=== PATIENT | male | born 1990 | race Caucasian/White ===

== ENCOUNTER 2023-09-24 03:13 | Emergency (ER) | payer BC ==
[~2023-09-24] VITALS: Ht 175.3 cm; Wt 70.0 kg
[2023-09-24 03:20] VITALS: O2SAT 98
[2023-09-24 03:57] VITALS: BP 161/101; PULSE 84; RESP 14; TEMP 98
[2023-09-24 04:40] LABS: BASOPHILS % 0.2 % (0.0-2.0); EOSINOPHILS % 0.1 % (0.0-5.0); HEMATOCRIT. 43.3 % (42.0-52.0); HEMOGLOBIN. 14.1 g/dL (14.0-18.0); LYMPHOCYTES % 8.9 % (20.0-50.0); MEAN CORPUSCULAR HEMOGLOBIN 26.7 pg (28.0-32.0); MEAN CORPUSCULAR HGB CONC 32.6 g/dL (31.0-37.0); MEAN CORPUSCULAR VOLUME 81.9 fL (80.0-94.0); MONOCYTES % 7.4 % (2.0-8.0); NEUTROPHILS % 83.4 % (40.0-76.0); PLATELET 277 x1000/uL (130-400); RED BLOOD CELL COUNT 5.29 mill/uL (4.7-6.1); RED CELL DISTRIBUTION WIDTH 15.7 % (11.6-14.6)
[2023-09-24 04:48] LABS: CHLORIDE 106 mEq/L (98-107); SODIUM 141 mEq/L (136-145)
[2023-09-24 04:51] LABS: CARBON DIOXIDE 27 mEq/L (21-32)
[2023-09-24 04:52] LABS: CALCIUM 9.4 mg/dL (8.7-10.4)
[2023-09-24 04:56] LABS: CREATININE 1.3 mg/dL (0.6-1.3); GLUCOSE 58 mg/dL (70-105); UREA NITROGEN BLOOD 14 mg/dL (9-23)
== END 2023-09-24 06:14 | disposition home or self-care (01) ==
LOC: ER 03:13
DX: E11.649 Type 2 diabetes mellitus with hypoglycemia without coma (principal); Z86.39 Personal history of other endocrine, nutritional and metabolic disease
CPT/HCPCS: 36415; 80048; 82962; 85025; 99283